=== PATIENT | male | born 1990 | race Caucasian/White ===

== ENCOUNTER 2017-10-31 01:47 | Emergency (ER) | payer OTHER ==
[~2017-10-31] VITALS: Ht 172.7 cm; Wt 79.8 kg
[2017-10-31] MEDS ORDERED: CLEOCIN150 MG PO (03:03)
[2017-10-31 03:18] VITALS: BP 150/101
== END 2017-10-31 03:18 | disposition home or self-care (01) ==
LOC: EME 01:47 → EXP 01:47
DX: K08.89 Other specified disorders of teeth and supporting structures (principal)
CPT/HCPCS: 99281; 99284